=== PATIENT | male | born 1990 | race Caucasian/White ===

== ENCOUNTER 2024-07-17 18:03 | Emergency (ER) | payer MEDICAID ==
[2024-07-17] MEDS: Cyclobenzaprine 10 MG Tab PO STA (19:00)
== END 2024-07-17 19:21 | disposition home or self-care (01) ==
LOC: MW.ED 18:03
DX: M79.641 Pain in right hand (principal); L85.3 Xerosis cutis; F17.210 Nicotine dependence, cigarettes, uncomplicated; Z75.8 Other problems related to medical facilities and other health care
CPT/HCPCS: 99283; A9270